=== PATIENT | male | born 1955 | race Caucasian/White ===

== ENCOUNTER → 2018-07-12 | Day surgery (SDC) | payer OTHER ==
[~2018-07-12] VITALS: Ht 180.3 cm; Wt 90.5 kg
[~2018-07-12] MED LIST: ALBU8.5H8 IH; ALBUTEROL SULFATE 2.5 MG/0.5 ML NEB SOLUTION NEB ONE; BENZOCAINE 20% 50 MCG/SPRAY 57 GM ONE; CETI-290 PO; DOXY25SU3 PO; FLUT16H NASAL; FLUT1AER5 PO; FentaNYL CITRATE-PF 100 MCG/2 ML VIAL ONE; LIDOCAINE HCL 2% 30 ML JELLY ONE; LIDOCAINE HCL 4% 50 ML SOLUTION ONE; MIDAZOLAM HCL 2 MG/2 ML VIAL ONE; MONT10TA21 PO; MethylPREDNISolone SOD SUCC 125 MG/2 ML VIAL IVP ONE; MethylPREDNISolone SOD SUCC 125 MG/2 ML VIAL ONE; OMEP20 PO; OXYGEN THERAPY IH SCH; PRED10 PO; SODIUM CHLORIDE 0.9% 1,000 ML IV ONE
== END | disposition home or self-care (01) ==
LOC: SURGERY 06:50
PROVIDERS: ATTEND Internal Medicine Critical Care Medicine
DX: J38.4 Edema of larynx (principal); B37.0 Candidal stomatitis; J84.111 Idiopathic interstitial pneumonia, not otherwise specified; J45.998 Other asthma; F17.220 Nicotine dependence, chewing tobacco, uncomplicated; Z79.52 Long term (current) use of systemic steroids; Z86.11 Personal history of tuberculosis; Z98.890 Other specified postprocedural states; Z79.899 Other long term (current) drug therapy
CPT/HCPCS: 31623; 31624; 71045; 87015; 87070; 87205; 87206; 87220; 88108; 88312; J2250; J2930; J3010; J7030

== ENCOUNTER 2019-02-23 06:35 | Day surgery (SDC) | payer OTHER ==
[~2019-02-23] VITALS: Ht 182.9 cm; Wt 93.6 kg
[~2019-02-23 06:35] MED LIST changes: -ALBUTEROL SULFATE 2.5 MG/0.5 ML NEB SOLUTION NEB ONE; -BENZOCAINE 20% 50 MCG/SPRAY 57 GM ONE; -CETI-290 PO; +CETI10TA59 PO; -FentaNYL CITRATE-PF 100 MCG/2 ML VIAL ONE; -LIDOCAINE HCL 2% 30 ML JELLY ONE; -LIDOCAINE HCL 4% 50 ML SOLUTION ONE; -MIDAZOLAM HCL 2 MG/2 ML VIAL ONE; -MethylPREDNISolone SOD SUCC 125 MG/2 ML VIAL IVP ONE; -MethylPREDNISolone SOD SUCC 125 MG/2 ML VIAL ONE; -OXYGEN THERAPY IH SCH
[2019-02-23] MEDS ORDERED: LIDOCAINE 2% 5 ML JELLY TP ONE (06:36)
[2019-02-23] MEDS ORDERED: ALBUTEROL SULFATE 2.5 MG/0.5 ML NEB SOLUTION NEB ONE (06:36)
[2019-02-23] MEDS ORDERED: BENZOCAINE 20% 50 MCG/SPRAY 57 GM TP ONE (06:36)
[2019-02-23] MEDS ORDERED: LIDOCAINE 4% 50 ML SOLUTION TP ONE (06:36)
[2019-02-23] MEDS ORDERED: SODIUM CHLORIDE 0.9% 1,000 ML IV ONE (07:00)
[2019-02-23] MEDS ORDERED: FentaNYL CITRATE-PF 100 MCG/2 ML VIAL ONE (08:11)
[2019-02-23] MEDS ORDERED: MIDAZOLAM HCL 2 MG/2 ML VIAL ONE (08:11)
[2019-02-23] MEDS ORDERED: MethylPREDNISolone SOD SUCC 125 MG/2 ML VIAL IVP ONE (08:15)
[2019-02-23] MEDS ORDERED: MethylPREDNISolone SOD SUCC 125 MG/2 ML VIAL ONE (08:49)
[2019-02-23] MEDS ORDERED: OXYGEN THERAPY IH SCH (20:00)
== END 2019-02-23 09:55 | disposition home or self-care (01) ==
LOC: SURGERY 06:35
PROVIDERS: ATTEND Internal Medicine Critical Care Medicine
DX: J38.4 Edema of larynx (principal); B37.0 Candidal stomatitis; K21.9 Gastro-esophageal reflux disease without esophagitis
CPT/HCPCS: 31623; 31624; 71045; 87015; 87070; 87101; 87205; 87206; 87220; 88108; 88312; J2250; J2930; J3010; J7030

== ENCOUNTER 2025-09-13 07:13 | Day surgery (SDC) | payer OTHER ==
[~2025-09-13] VITALS: Ht 182.9 cm; Wt 90.9 kg
[~2025-09-13 07:13] MED LIST changes: -CETI10TA59 PO; +CETI10TA77 PO; -FLUT16H NASAL; +FLUT16SP NASAL; +MONT-35 PO; -MONT10TA21 PO; +OMEP-148 PO; -OMEP20 PO; +PRED-729 PO; -PRED10 PO; -SODIUM CHLORIDE 0.9% 1,000 ML IV ONE; +SODIUM CHLORIDE 0.9% 1,000 ML ONE
[2025-09-13] MEDS: SODIUM CHLORIDE 0.9% 1,000 ML IV ONE (07:53)
[2025-09-13] MEDS ORDERED: FentaNYL CITRATE PF 100 MCG/2 ML VIAL ONE (07:58)
[2025-09-13] MEDS ORDERED: MIDAZOLAM HCL 2 MG/2 ML VIAL ONE (07:58)
[2025-09-13] MEDS ORDERED: TIOT185 IH (08:12)
[2025-09-13] MEDS ORDERED: FLUT1BLS15 IH (08:12)
[2025-09-13 10:01] VITALS: PULSE 67; RESP 12; O2SAT 100
[2025-09-13] MEDS ORDERED: BENZOCAINE 20% 50 MCG/SPRAY 57 GM ONE (16:58)
[2025-09-13] MEDS ORDERED: LIDOCAINE 2% 11 ML JELLY ONE (16:58)
[2025-09-13] MEDS ORDERED: LIDOCAINE 4% 50 ML SOLUTION ONE (16:58)
[2025-09-13] MEDS ORDERED: ALBUTEROL SULFATE 2.5 MG/0.5 ML NEB SOLUTION NEB ONE (16:58)
== END 2025-09-13 13:20 | disposition home or self-care (01) ==
LOC: SDS 07:13
PROVIDERS: ATTEND Internal Medicine Critical Care Medicine
DX: R05.3 Chronic cough (principal); R06.2 Wheezing; R49.0 Dysphonia; R04.2 Hemoptysis; R06.1 Stridor; R91.8 Other nonspecific abnormal finding of lung field; Z98.49 Cataract extraction status, unspecified eye
CPT/HCPCS: 31623; 31624; 71045; 87015; 87070; 87101; 87206; 87220; 88108; J2250; J2919; J3010; J7030; J7613; Z7610